=== PATIENT | female | born 1945 | race Caucasian/White ===

== ENCOUNTER 2018-11-07 17:48 | Inpatient (IN) | payer OTHER ==
[~2018-11-07] VITALS: Ht 170.2 cm; Wt 48.5 kg
--- NOTE | ~2018-11-07 | D ---
[facility] [place] [address] DISCHARGE SUMMARY Name: BRANDY HENLEY Room #: 455-P ADM IN M.R.#: [id number] Admission: 11/07/18 Attend Phys: Flavio Lyons MD Discharge: Date of : 41 Report #: [id number] THIS REPORT FOR: //name// CC: Flavio Lyons FINAL DIAGNOSES: 1. Nonhealing wound to the left lower leg. 2. Peripheral artery disease. 3. Diabetes type 2. 4. Tobaccoism. PROCEDURES: 1. Arteriogram and stent placement, left leg. 2. Surgical debridement, wound of the left leg. HOSPITAL COURSE: The patient was admitted for treatment of a nonhealing lower left leg wound that was due to minor trauma that occurred a month or so back. She failed outpatient treatment of oral antibiotics, topical treatment, several office visits and even [facility]. Arteriogram was obtained. A stent was placed in the left arterial system. Please see that specific report. Other medications were continued. She then required surgical debridement of the area to excise eschar type material. Please see that operative note. Ultimately, our medical plan and recommendation was correction for optimal wound care to ensure healing. She has had a complicated course that had failed outpatient treatment. She is also newly diabetic and has had some fluctuating blood sugars. We are also encouraging her to stop smoking. PHYSICAL EXAMINATION: GENERAL: On the day of discharge, she was resting comfortably in bed. VITAL SIGNS: Stable. LUNGS: Clear. HEART: Regular. ABDOMEN: Soft, normoactive bowel sounds. EXTREMITIES: Showed no edema and the left leg wound was dressed. DISPOSITION: She will be transferred to the [facility]. Diabetic diet. Activity as tolerated. Wound care per orders. PT, OT. Should continue Amaryl, metformin and Plavix. Follow up with me in a month and Dr. Suazo in a week. By: [id number] Flavio Lyons MD /nt
--- NOTE | ~2018-11-07 | H ---
[facility] [place] [address] [place] [address] HISTORY AND PHYSICAL Name: BRANDY HENLEY Room #: 354-P ADM IN M.R.#: [id number] Admission: 11/07/18 Attend Phys: Flavio Lyons MD Discharge: Date of : 41 Report #: [id number] THIS REPORT FOR: //name// CC: Flavio Lyons DATE OF SERVICE: 11/07/2018 HISTORY OF PRESENT ILLNESS: A 73-year-old female with nonhealing wound and near gangrene, left leg. HISTORY OF PRESENT ILLNESS: This is a patient couple of months ago injured her left leg with really what appeared to be a minor injury, but this has never healed and so now over 2-3 months out and she comes to the office with almost a gangrenous looking leg. Very suspicious for significant vascular insufficiency. Sonogram was done, which confirmed high-grade stenosis of his distal left superficial femoral artery. There are multiple other issues there as well and in view of the urgency of the situation admission was recommended. MEDICATIONS: She currently takes metformin and glimepiride. She has been on sulfasalazine. ALLERGIES: She has no known drug allergies. FAMILY HISTORY: Noncontributory. SOCIAL HISTORY: She does not drink, but does smoke cigarettes. REVIEW OF SYSTEMS: No specific cardiac, pulmonary, GI or complaints at this time. She is just frustrated with her left leg issues. PHYSICAL EXAMINATION: GENERAL: Shows her to be in no distress. She is awake, alert and oriented. HEENT: Otherwise, negative. NECK: Supple, without thyromegaly or adenopathy. CHEST: Clear. CARDIOVASCULAR: Showed a regular rate and rhythm without murmur. ABDOMEN: Soft and nontender, without hepatosplenomegaly. EXTREMITIES: Showed the left leg, which was cool and there was significant wounds on the anterior hogan, lateral toe and Achilles area. ASSESSMENT: This is a 73-year-old female with a nonhealing left leg wounds with severe peripheral vascular disease and near gangrenous state. PLAN: 1. Aortogram and lower extremity arteriogram with the hopes of angioplasty or stent. [facility] [address] [place] [address] HISTORY AND PHYSICAL Name: BRANDY HENLEY Room #: 354-P ADM IN M.R.#: [id number] Admission: 11/07/18 Attend Phys: Flavio Lyons MD Discharge: Date of : 41 Report #: [id number] 2. Diabetes. 3. Smoking history. By: [id number] Abrahan Faith MD /PMT
[2018-11-07 18:10] VITALS: BP 146/78
[2018-11-07 19:34] VITALS: BP 146/73
[2018-11-07 20:23] LABS: ABSOLUTE NEUTROPHILS 5.8 thou/uL (1.4-8.2); BASOPHILS 0.3 % (0.0-2.0); EOSINOPHILS 1.4 % (0.0-3.0); HEMATOCRIT 38.2 % (37.0-47.0); MCH 28.3 pg (26.0-34.0); MCHC 34.2 g/dL (28.0-37.0); MCV 82.9 fL (80.0-100.0); MONOCYTES 6.9 % (1.0-8.0); PLATELET COUNT 338 thou/uL (150-400); POLYS 69.4 % (36.0-66.0); RDW 13.5 % (10.5-14.5); WBC 8.4 thou/uL (4.0-11.0)
[2018-11-07 20:40] LABS: ALBUMIN 3.3 g/dL (3.4-5.0); CALCIUM 9.3 mg/dL (8.5-10.1); TOTAL BILIRUBIN 0.4 mg/dL (<0.1-1.0); TOTAL PROTEIN 7.6 g/dL (6.4-8.2)
[2018-11-07] MEDS ORDERED: AMARYL4 MG PO (20:40)
[2018-11-07] MEDS ORDERED: METFORMIN HCL500 MG PO (20:40)
[2018-11-07] MEDS ORDERED: SSD CREAM 1% 5050 GM TOP (20:40)
[2018-11-08] VITALS (7 sets, daily range): BP systolic 103–1103; BP diastolic 47–77
[2018-11-08 05:44] LABS: HEMATOCRIT 37.3 % (37.0-47.0); HEMOGLOBIN 12.7 gm/dL (12.0-15.0); MCH 28.2 pg (26.0-34.0); MCHC 34.1 g/dL (28.0-37.0); MCV 82.6 fL (80.0-100.0); RBC 4.51 mil/uL (4.20-5.00); RDW 13.6 % (10.5-14.5); WBC 7.2 thou/uL (4.0-11.0)
[2018-11-08 05:57] LABS: CALCIUM 9.1 mg/dL (8.5-10.1); CREATININE 0.8 mg/dL (0.6-1.0); POTASSIUM 4.3 mmol/L (3.5-5.1); TOTAL BILIRUBIN 0.4 mg/dL (<0.1-1.0); TOTAL PROTEIN 6.9 g/dL (6.4-8.2)
--- NOTE | 2018-11-08 06:01 | NUR ---
PATIENT IS ALERT AND ORIENTED. PATIENT IS UP WITH ONE. PATIENT HAS REDDNESS AND SWELLING TO LLE AND HAS A LIMP UPON AMBULATION. PATIENT IS ROOM AIR. PATIENT IS ACHS ACCUCHECKS. PATIENTS LBM WAS THE 14TH. PATIENT IS RESTING COMFORTABLY IN BED WCM. PATIENT IS PROGRESSING TO GOALS.
--- NOTE | 2018-11-08 10:49 | NUR ---
Assess due to RD consult received for pt with vascular wound, non healing left wound. Hx DM, + tobacco use. Newly admitted and pt was sleeping at time of visit so did not awaken. Low BMI 16.8, no wt loss hx available. Breakfast tray observed and pt ate 100% of large meal. BG slight elevated 150-160. Continue carb control diet, add glucerna shake for extra calories/protein and will follow up again next week to further assess intake trends and wt hx.
--- NOTE | 2018-11-08 11:14 | NUR ---
WOUND CONSULT; LEFT LOWER EXTREMITY ASSESSED. THE LEFT VILLARREAL HAS BRUSING AND ESCHAR-LIKE COVERING, THE WOUND IS STABLE. THE EXTREMITY IS COLD, THERE IS A OLD BLISTER TO THE 5TH TOE. NO PULSES AND NO PULSES ASSESSED WITH A BEDSIDE DOPPLER. THERE IS NO DRAINAGE AND THE EXTREMILY IS TENDER. RECOMMENDATION; (FOR NOW) PAINT THE AREAS WITH BETADINE AND COVER WITH AN OPTIFOAM BOARDERED DRESSING. DISCUSSED WITH BLAS
[2018-11-08 12:04] LABS: PROTIME 10.5 Seconds (9.3-11.4)
--- NOTE | 2018-11-08 15:32 | NUR ---
ASSESSMENT: CM REVIEWED CHART AND MET WITH PATIENT AT THE BEDSIDE. PT WAS ADMITTED WITH PVD/NON-HEALING WOUNDS. PT REPORTS THAT SHE NORMALLY LIVES ALONE BUT STATES SHE CURRENTLY IS STAYING WITH HER SON AND DAUGHTER IN [place] AND PLANS ON STAYING THERE FOR A WHILE. SHE REPORTS THEY LIVE IN A HOUSE. PT REPORTS ABOUT 8 STEPS WITH HANDRAILS TO ENTER AND ABOUT ANOTHER 5-6 WITH HANDRAIL TO THE UPPER FLOOR. PT REPORTS HAVING A WALK IN SHOWER WITH SHOWER CHAIR. PT REPORTS BEING INDEPENDENT WITH ADLS. PT STATES SHE HAS NO HAD HH IN THE PAST OR BEEN TO A SNF. CM DISCUSSED ROLE. PT DOES NOT ANTICIPATE HAVING ANY NEEDS AT DISCHARGE. PT IS TO HAVE AORTIOGRAM WITH LOWER EXTREMITY ANTERIOGRAM TOMORROW. CM WILL CONTINUE TO FOLLOW TO ASSIST NEEDED.
--- NOTE | 2018-11-08 19:56 | NUR ---
PATIENT VERY PLEASANT AND COOPERATIVE. SHE HAS EXPRESSED SOME PAIN IN HER LEG, HOWEVER EXPRESSED SHE DOES NOT NEED PAIN MEDICATION. NEW CREAM WITH MORPHINE APPLIED AFTER IT ARRIVED TO UNIT. HER LEFT LEG WOUND WAS DRESSED AFTER CREAM APPLIED. PATIENT UP WITH ASSISTANCE. PHYSICIANS ROUNDED TODAY AND DISCUSSED HER PLAN OF CARE FOR TOMORROWS PROCEEDURE. REPORT GIVEN TO DIGITAL ACCOUNT EXECUTIVE RN FOR CONTINUATION OF CARE.
[2018-11-09 04:00] VITALS: BP 145/77
[2018-11-09 07:54] VITALS: BP 118/72
--- NOTE | 2018-11-09 13:39 | NUR ---
ON-GOING ASSESSMENT: PT IS TO HAVE ARTERIOGRAM WITH POSSIBLE STENT PLACEMENT. PT REPORTS SHE SHOULD HAVE NO NEEDS AT DISCHARGE ONCE SHE IS MEDICALLY STABLE. CM WILL CONTINUE TO FOLLOW TO ASSIST NEEDED. PT CURRENTLY IS LIVING WITH HER SON.
[2018-11-09 16:02] VITALS: BP 131/75
[2018-11-09 19:58] VITALS: BP 122/64
[2018-11-10 03:26] VITALS: BP 133/59
[2018-11-10 07:36] VITALS: BP 114/63
[2018-11-10 15:45] VITALS: BP 137/75
[2018-11-10 19:05] VITALS: BP 115/72
--- NOTE | 2018-11-11 03:15 | NUR ---
ASSUMED PT CARE AROUND 1900. A&OX4. C/O LLE PAIN. ZIGGY CREAM AND DRESSING CHANGED TO LLE. UP W/ SBA TO BSC. TOLERATED WELL. PT SLEPT MOST OF THE NIGHT. RESP EVEN AND UNLABORED. PROGRESSING TOWARD POC GOALS. WILL CONTINUE TO MONITOR FURTHER.
[2018-11-11 03:40] VITALS: BP 124/75
[2018-11-11 07:20] VITALS: BP 118/71
--- NOTE | 2018-11-11 13:11 | NUR ---
ASSUMED CARE OF PT AT 0700. PT ALERT AND ORIENTED, IN NO ACUTE DISTRESS. DRESSING CHANGED PER ORDER - NEW PICTURE PLACED IN CHART FOR POSSIBLE D/C TODAY OR TOMORROW. PT VOICING NO CONCERNS AT THIS TIME. UP W/ SBA. VITALS STABLE. CONTINUES TO REFUSE INSULIN. WILL CONT TO MONITOR.
[2018-11-11 16:30] VITALS: BP 118/69
--- NOTE | 2018-11-11 19:50 | NUR ---
pt is A&OX3, PT'S vs are stable , pt denies pain and sob , RN has called dr to report pt refused insulin sq. pt has slowly meeting care plan goals.
[2018-11-11 19:56] VITALS: BP 132/65
--- NOTE | 2018-11-12 03:23 | NUR ---
ASSUMED PT CARE AROUND 1900. A&OX4. C/O LLE PAIN. DRESSING CHANGED TO LLE WOUND. MORPHINE/SILVADENE CREAM APPLIED TO LLE WOUND PER DR ORDER. PT SLEPT MOST OF THE NIGHT. RESP EVEN AND UNLABORED. FALL PRECAUTIONS IN PLACE. PROGRESSING TOWARD POC GOALS. WILL CONTINUE TO MONITOR FURTHER.
[2018-11-12 04:33] VITALS: BP 121/58
[2018-11-12 07:53] VITALS: BP 129/76
--- NOTE | 2018-11-12 13:04 | NUR ---
on-going assessment: cm reviewed chart and spoke with attending. pt/ot ordered. physical therapy is recommending POST ACUTE CARE AT DISCHARGE. CM SPOKE WITH PATIENT TO DISCUSS AND SHE IS AGREEABLE FOR POST ACUTE CARE. CM PROVIDED PATIENT WITH A SNF LIST FOR HER TO REVIEW AND SHE PLANS ON NOTIFYING CM TODAY OF A PLACE FOR REFERRAL TO BE SENT. CM WILL CONTINUE TO FOLLOW WE WILL NEED INSURANCE AUTH PRIOR TO DISCHARGE TO SNF.
--- NOTE | 2018-11-12 13:53 | NUR ---
dp sent snf referral to [facility], requesting they please seek authorization. Patient is medically stable to dc once we have auth. DP will call [facility] to verify they received the referral
[2018-11-12 16:04] VITALS: BP 134/76
--- NOTE | 2018-11-12 16:09 | NUR ---
ORDER REC'D FOR OT EVAL AND TREAT. PATIENT INTERVIEWED AND INSTRUCTED IN ROLE OF OCCUPATIONAL THERAPY. 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 SHE DECLINED THE NEED FOR OT AT THIS TIME STATING THAT SHE IS ABLE TO DO HER SELFCARES AND ONLY NEEDS PHYSICAL THERAPY FOR HER WALKING. PATIENT WAS ABLE TO DEMONSTRATE ABILITY TO DO BASIC ADLS. WILL DISCHARGE PATIENT FROM ACUTE OT AFTER THIS SCREENING DUE TO PATIENT'S DENIAL OF NEED FOR OT.
[2018-11-12 19:40] VITALS: BP 147/66
--- NOTE | 2018-11-12 20:01 | NUR ---
Assumed care aprox. 0700 this AM. Patient circulation adequate with 2/2 pulses and pink, warm skin. Patient complained of mild to moderate pain but refused any pain medications for comfort. Dressing change completed by wound care nurse, Rosita and doctor. Patient anxious to be discharged and go home. Patient up with standy assist and walker. Patient reported to be steady on her feet by the nurse aides. Progression made toward plan of care.
[2018-11-13 04:29] VITALS: BP 131/54
--- NOTE | 2018-11-13 06:12 | NUR ---
ASSUMED CARE AT 1900, ASSESSMENT COMPLETED. PT REPORTS MODERATE PAIN IN LEFT LEG, REFUSED ANY PAIN MEDS; STATES IT FEELS LIKE SHARP PRICKLING, INCREASED SINCE HAVING STENT PLACED. DENIED SOB OR NAUSEA. RIGHT GROIN SITE C/D/I NO SIGNS OF HEMATOMA OR BLEEDING. PT HAD A LATE DAY DRESSING CHANGE, REFUSED SECOND CHANGE IN EVENING; DRESSING SITE C/D/I. 1+ PITTING EDEMA IN LEFT FOOT/ANKLE AND A 3+ BOUNDING PEDAL PULSE; LOOSENED ANASTASIA WRAP TO DRESSING TO REDUCE EDEMA. NO OTHER CONCERNS, WILL CONTINUE TO MONITOR.
[2018-11-13 07:37] VITALS: BP 127/74
[2018-11-13] MEDS ORDERED: CLOPIDOGREL75 MG PO (10:08)
--- NOTE | 2018-11-13 12:55 | NUR ---
on-going assessment: CM MET WITH PATIENT AT THE BEDSIDE. PT REPORTS STILL FEELING WEAK AND IF SHE NEEDS SNF AT DISCHARGE. CM DISCUSSED DISCHARGE ORDERS HAVE BEEN WRITTEN FOR SNF AND CM FAXED PT/OT D/C ORDERS TO [facility] AND THEY HAVE SUBMITTED FOR INSURANCE AUTH AND WAITING TO HEAR BACK FROM INSURANCE AT THIS TIME. MINERVA LEFT VM WITH TED AT [facility] THAT WE HAVE DISCHARGE ORDERS AND CM FAXED HER PAPERWORK.
[2018-11-13 19:45] VITALS: BP 139/60
--- NOTE | 2018-11-13 19:47 | NUR ---
Assumed care approx. 0700 this AM. Left extremity dressing changed per orders this afternoon. Patient waiting on insurance auth for discharge to skilled facility; patient anxious to be discharged but remains cooperative. Progression made toward plan of care and discharge.
[2018-11-14 04:26] VITALS: BP 139/91
--- NOTE | 2018-11-14 05:25 | NUR ---
ASSUMED CARE AT 1900, ASSESSMENT COMPLETED. PT REPORTS CHRONIC PAININ LEG, DOES NOT WANT PAIN MEDS. DENIES NAUSEA OR SOB. UP WITH STANDBY ASSIST AND WALKER TO BATHROOM. NPO AT MIDNIGHT FOR DEBRIDEMENT OF LEFT LEG WOUND THIS AM. PER DR. JULIAN, TODAY'S PLAVIX ON HOLD. NO OTHER CONCERNS, WILL CONTINUE TO MONITOR.
[2018-11-14 07:24] VITALS: BP 130/57
--- NOTE | 2018-11-14 10:27 | NUR ---
on-going assessment: PT HAD DEBRIDEMENT THIS AM AND WAS MOVED TO 4W. CM SPOKE WITH DR. HILL WHO STATES PATIENT WILL LIKELY BE STABLE TO DISCHARGE TOMORROW TO SNF. CM LEFT VM WITH TED AT [facility] TO UPDATE HER. WE WILL NEED INSURANCE AUTH PRIOR TO DISCHARGE TO SNF. CM WILL CONTINUE TO FOLLOW TO ASSIST NEEDED.
--- NOTE | 2018-11-14 11:59 | NUR ---
Report given to preop at shift change approx. 0700 this AM. Report called to recieving nurse as patient is med-surg status and transferred to new unit. All belongings sent to patient's new room.
--- NOTE | 2018-11-14 15:00 | NUR ---
PT A&O4, VSS, RATES PAIN AT 4 IN LEFT LEG AND DOESNT WANT PAIN MEDICATION AT THIS TIME. BASELINE SENSATION FELT IN LEFT LEG, PATIENT STATES SHE BEEN HAVING SOME NUMBNESS IN BOTH FEET NOT NEW ONSET. COLOR IN LE APPORPRIATE, SKIN WARM TO TOUCH. DENIES CHEST PAIN, SOA. TOLERATING DIET WELL, WILL CONTINUE TO MONITOR.
[2018-11-14 20:50] VITALS: BP 139/70
--- NOTE | 2018-11-15 05:08 | NUR ---
Pt. rested quietly at intervals during the night when checked on during frequent rounds. Dressing to left lower leg is dry and intact. She c/o moderate pain to the left leg, but did not want anything for pain. Blood sugar elevated last evening, but pt. voice she will not take any insulin. Bed alarm is on.
[2018-11-15 08:34] VITALS: BP 123/55
--- NOTE | 2018-11-15 09:47 | NUR ---
DISCHARGE PLANNING. ANTICIPATED DISCHARGE TODAY TO [facility], PENDING ATTENDING ASSESSMENT. CALL PLACED TO TED, [facility] SMOG TECHNICIAN. VOICE MAIL LEFT FOR TED TO FOLLOW UP ON PATIENT INSURANCE AUTH STATUS. UNIT SW AWARE. FOLLOWING.
--- NOTE | 2018-11-15 15:08 | PATH ---
[facility] [address] [place] [address] PATHOLOGY RPT PROCEDURE Name: BRANDY HENLEY Room #: 455-P ADM IN M.R.#: [id number] Admission: 11/07/18 Date of : 41 Discharge: Report #: [id number] Path Case #: [id number] [facility] Accession Number: [id number] . 01 Material submitted: . leg - LEFT LOWER EXTREMITY WOUND. Modifiers: left, lower . 01 Clinical history: . PVD, nonhealing wound left lower leg . 02 Diagnosis: Skin and subcutaneous tissue, "left lower extremity wound", debridement: - Skin with ulceration and associated necrosis and acute abscess. (ESTEFANIA/db; 11/15/2018) LBQ/11/15/2018 . 02 Electronically signed: . David Tuttle MD, Pathologist NPI- [id number] . 01 Gross description: . The specimen is received in formalin, labeled "Brandy Henley, left lower extremity wound" and consists of a necrotic segment of pink-mcintosh to black-brown tissue measuring 6.8 x 2.8 x 0.3 cm. Insole Rounder sections are submitted in A1. (SDY; 11/14/2018) SYU/SYU . 02 Pathologist provided ICD-10: I96, L97.929, L02.416 . 02 CPT . 621610 Specimen Comment: A courtesy copy of this report has been sent to Specimen Comment: [phone], . Specimen Comment: Report sent to / DR HILL Performed at: [address], [place] [id number] MD Franklin Aleman MD Phone: [phone] Performed at: [address] [id number] MD Christina Oliva MD Phone: [phone]
[2018-11-15 17:00] VITALS: BP 126/59
--- NOTE | 2018-11-15 17:15 | NUR ---
AWAITING INSURANCE FOR PT TO [facility] SKILLED. CM FOLLOWING REGARDING DC PLANNING.
[2018-11-15 19:52] VITALS: BP 139/71
--- NOTE | 2018-11-15 20:25 | NUR ---
PT A&OX4, VSS, CHRONIC PAIN. PATIENT DOESNT WANT MEDICATION AT THIS TIME. DRESSING ON LEFT LEG CHANGED. DRESSING RIGHT GROIN C/D/I. WILL CONTINUE TO MONITOR.
--- NOTE | 2018-11-16 02:18 | NUR ---
ASSUMED CARE FROM DAY SHIFT , DRESSING DRY AND INTACT TO LEG DENIES PAIN AT TIME OF ASSESSMENT, UP TO BATHROOM WITH WALKER, RESTED WELL THROUGHOUT HOURLY ROUNDS WILL CONITNUE WITH CURRENT PLAN OF CARE, WILL REPORT CHANGES OR ABNORMAL FINDINGS
--- NOTE | 2018-11-16 06:36 | O ---
[facility] [address] [place] [address] OPERATIVE REPORT Name: BRANDY HENLEY Room #: 455-P [facility] [place] M.R.#: [id number] Admission: 11/07/18 Attend Phys: Flavio Lyons MD Discharge: Date of : 41 Report #: [id number] THIS REPORT FOR: //name// CC: Flavio Lyons DATE OF SERVICE: 11/14/2018 SURGEON: Oswald Vasquez MD VIOLIN MECHANIC: None. PREOPERATIVE DIAGNOSES: 1. Chronic left lower extremity wound. 2. Peripheral vascular disease. 3. Newly diagnosed diabetes mellitus. POSTOPERATIVE DIAGNOSES: 1. Chronic left lower extremity wound (stage 3). 2. Peripheral vascular disease. 3. Newly diagnosed diabetes mellitus. PROCEDURE: Excisional and ultrasonic debridement of stage 3 left lower extremity wound including skin, subcutaneous tissue, and fascia (32 cm2). ANESTHESIA: General laryngeal mask anesthesia and local anesthetic. ESTIMATED BLOOD LOSS: 5 mL. SPECIMEN: Left lower extremity wound including skin, subcutaneous tissue, and fascia. COMPLICATIONS: None appreciated. INDICATIONS FOR PROCEDURE: This is a 73-year-old female patient that was admitted for a left lower extremity wound. The wound initially started off after she had "bumped" her hogan in late 07/2018. She tried treating the wound locally and went through a couple different rounds of antibiotics before she ultimately underwent lower extremity stent placement for peripheral vascular disease. She has also been recently diagnosed with diabetes mellitus. As her wound has not improved with local wound care, she presents now for excisional and ultrasonic debridement of her wound. OPERATIVE FINDINGS: The wound measured 8 x 4 cm. Fibrinous exudate and eschar were present throughout most of the wound. Debridement was carried down to healthy, bleeding tissue. This required removal of the fascia that appeared to be poorly vascularized. The underlying muscle was viable. There were no [facility] [address] [place] [address] OPERATIVE REPORT Name: BRANDY HENLEY Room #: 455-P [facility] [place] ..#: [id number] Admission: 11/07/18 Attend Phys: Flavio Lyons MD Discharge: Date of : 41 Report #: [id number] malignant features associated with the wound. DESCRIPTION OF PROCEDURE IN DETAIL: After the risks, benefits, and expectations of the operation were discussed in detail with the patient, informed consent was obtained. The patient was identified in the preoperative holding area. She was given IV antibiotics as documented in the chart in line with SCIP metrics. The patient was then taken to the operating room and she was placed in the supine position. An SCD was placed on the patient's right lower extremity. Pneumatic compression was initiated. The patient was then given IV sedation and a laryngeal mask was placed without difficulty. The patient's left lower extremity was prepped and draped in the standard sterile fashion. A time-out was performed to identify the correct patient and procedure. Local anesthetic was infiltrated into the skin and subcutaneous tissue in the area of the planned excision. A sharp #10 blade scalpel was used to excise the necrotic tissue overlying the wound. This did not require removal of the wound edges, but rather increased the depths of the wound, which also included the fascia to reveal the underlying muscle. Cultures were then taken to be sent for aerobes, anaerobes and fungus. Bleeding points were made hemostatic with electrocautery after injecting more local anesthetic into the wound base. The FatSkunk ultrasonic debridement device was then used to mechanically debride the entire surface area of the wound with development of a gentle ooze of blood from the tissue and good cavitation, indicative of bacterial clearance and clearance of necrotic cells. The wound was then irrigated and reinjected with local anesthetic. After ensuring final hemostasis, the wound was dressed with tea-colored Betadine:normal saline solution on gauze, then wrapped with Kerlix. The patient tolerated the procedure well. She was awakened, the laryngeal mask was removed without difficulty, and the patient was taken to the recovery room in stable condition with no apparent intraoperative complications. <ELECTRONICALLY SIGNED> By: Oswald Vasquez MD, FACS 11/16/18 [id number] Oswald Vasquez MD, FACS /nt
[2018-11-16 07:14] VITALS: BP 148/64
--- NOTE | 2018-11-16 11:54 | NUR ---
Received awake on bed. Due medications given as prescribed, able to swallow tablets w/o difficulty. A+Ox4. On room air. On blood sugar monitoring- taken and recorded accordingly. With SL at R Hand- intact and flushing well. Pt mobilizing using walker, gait belt and stand by assist. With dressing in place at L leg, C/D/I, no signs of infection noted. Pt seen by PT/OT, tolerated session well. Vital signs stable.
== END 2018-11-16 16:45 | DRG 253 ==
LOC: 3W 17:48 → 4W 11-14 10:20
PROVIDERS: Internal Medicine; Radiology Diagnostic Radiology; ADMIT Internal Medicine Geriatric Medicine
PROC: B41D1ZZ Fluoroscopy of Aorta and Bilateral Lower Extremity Arteries using Low Osmolar Contrast (ICD-10-PCS; principal; 2018-11-09)
PROC: 047L3DZ Dilation of Left Femoral Artery with Intraluminal Device, Percutaneous Approach (ICD-10-PCS; principal; 2018-11-09)
PROC: 0JBP0ZZ Excision of Left Lower Leg Subcutaneous Tissue and Fascia, Open Approach (ICD-10-PCS; 2018-11-14)
DX: E11.51 Type 2 diabetes mellitus with diabetic peripheral angiopathy without gangrene (principal); E44.0 Moderate protein-calorie malnutrition; L97.829 Non-pressure chronic ulcer of other part of left lower leg with unspecified severity; Z68.1 Body mass index [BMI] 19.9 or less, adult; I70.202 Unspecified atherosclerosis of native arteries of extremities, left leg; Z95.820 Peripheral vascular angioplasty status with implants and grafts; Z79.899 Other long term (current) drug therapy
CPT/HCPCS: 10047; 10779; 50010; 50101; 50386; 57091; 57119; 57120; 62110; 62900; 70005

== ENCOUNTER → 2018-11-20 | Outpatient (CLI) | payer OTHER ==
[~2018-11-20] MED LIST: AMARYL4 MG PO; CLOPIDOGREL75 MG PO; METFORMIN HCL500 MG PO; SSD CREAM 1% 5050 GM TOP
== END ==
LOC: HYPER
DX: E11.622 Type 2 diabetes mellitus with other skin ulcer (principal); L97.822 Non-pressure chronic ulcer of other part of left lower leg with fat layer exposed; E11.51 Type 2 diabetes mellitus with diabetic peripheral angiopathy without gangrene; I77.1 Stricture of artery; F17.200 Nicotine dependence, unspecified, uncomplicated; Z79.84 Long term (current) use of oral hypoglycemic drugs; Z79.01 Long term (current) use of anticoagulants

== ENCOUNTER → 2018-12-04 | Outpatient (CLI) | payer OTHER | LOC: HYPER 06:49 | DX: E11.622 Type 2 diabetes mellitus with other skin ulcer (principal); L97.822 Non-pressure chronic ulcer of other part of left lower leg with fat layer exposed; E11.51 Type 2 diabetes mellitus with diabetic peripheral angiopathy without gangrene; F17.200 Nicotine dependence, unspecified, uncomplicated; Z79.84 Long term (current) use of oral hypoglycemic drugs; Z79.01 Long term (current) use of anticoagulants ==

== ENCOUNTER → 2018-12-19 | Outpatient (CLI) | payer OTHER | LOC: HYPER 07:01 | DX: E11.622 Type 2 diabetes mellitus with other skin ulcer (principal); L97.822 Non-pressure chronic ulcer of other part of left lower leg with fat layer exposed; E11.52 Type 2 diabetes mellitus with diabetic peripheral angiopathy with gangrene; I96 Gangrene, not elsewhere classified; I87.2 Venous insufficiency (chronic) (peripheral); F17.290 Nicotine dependence, other tobacco product, uncomplicated; Z79.01 Long term (current) use of anticoagulants; Z79.84 Long term (current) use of oral hypoglycemic drugs ==

== ENCOUNTER → 2019-01-10 | Outpatient (CLI) | payer OTHER | LOC: HYPER 10:30 | DX: E11.622 Type 2 diabetes mellitus with other skin ulcer (principal); L97.822 Non-pressure chronic ulcer of other part of left lower leg with fat layer exposed; E11.51 Type 2 diabetes mellitus with diabetic peripheral angiopathy without gangrene; F17.200 Nicotine dependence, unspecified, uncomplicated; Z79.84 Long term (current) use of oral hypoglycemic drugs; Z79.01 Long term (current) use of anticoagulants ==

== ENCOUNTER → 2019-01-29 | Outpatient (CLI) | payer OTHER | LOC: HYPER 07:28 | DX: E11.622 Type 2 diabetes mellitus with other skin ulcer (principal); L97.822 Non-pressure chronic ulcer of other part of left lower leg with fat layer exposed; E11.51 Type 2 diabetes mellitus with diabetic peripheral angiopathy without gangrene; F17.200 Nicotine dependence, unspecified, uncomplicated; Z79.84 Long term (current) use of oral hypoglycemic drugs; Z79.01 Long term (current) use of anticoagulants ==

== ENCOUNTER → 2019-03-12 | Outpatient (CLI) | payer OTHER | LOC: HYPER 11:02 | DX: E11.622 Type 2 diabetes mellitus with other skin ulcer (principal); L97.822 Non-pressure chronic ulcer of other part of left lower leg with fat layer exposed; I70.248 Atherosclerosis of native arteries of left leg with ulceration of other part of lower leg; S81.001A Unspecified open wound, right knee, initial encounter; E11.51 Type 2 diabetes mellitus with diabetic peripheral angiopathy without gangrene; F17.200 Nicotine dependence, unspecified, uncomplicated; Z79.84 Long term (current) use of oral hypoglycemic drugs; Z79.01 Long term (current) use of anticoagulants; X58.XXXA Exposure to other specified factors, initial encounter; Y93.89 Activity, other specified; Y92.89 Other specified places as the place of occurrence of the external cause; Y99.8 Other external cause status ==

== ENCOUNTER → 2019-04-02 | Outpatient (CLI) | payer OTHER | LOC: HYPER 11:03 | DX: E11.622 Type 2 diabetes mellitus with other skin ulcer (principal); I70.248 Atherosclerosis of native arteries of left leg with ulceration of other part of lower leg; L97.822 Non-pressure chronic ulcer of other part of left lower leg with fat layer exposed; S81.801D Unspecified open wound, right lower leg, subsequent encounter; E11.51 Type 2 diabetes mellitus with diabetic peripheral angiopathy without gangrene; L84 Corns and callosities; F17.290 Nicotine dependence, other tobacco product, uncomplicated; Z79.84 Long term (current) use of oral hypoglycemic drugs; Z79.01 Long term (current) use of anticoagulants; X58.XXXD Exposure to other specified factors, subsequent encounter ==

== ENCOUNTER → 2019-04-16 | Outpatient (CLI) | payer OTHER | LOC: HYPER 09:42 | DX: I70.232 Atherosclerosis of native arteries of right leg with ulceration of calf (principal); E11.622 Type 2 diabetes mellitus with other skin ulcer; L97.212 Non-pressure chronic ulcer of right calf with fat layer exposed; L97.222 Non-pressure chronic ulcer of left calf with fat layer exposed; E11.51 Type 2 diabetes mellitus with diabetic peripheral angiopathy without gangrene; L84 Corns and callosities; F17.290 Nicotine dependence, other tobacco product, uncomplicated; Z79.84 Long term (current) use of oral hypoglycemic drugs ==

== ENCOUNTER → 2019-05-07 | Outpatient (CLI) | payer OTHER | LOC: HYPER 10:33 | DX: I70.248 Atherosclerosis of native arteries of left leg with ulceration of other part of lower leg (principal); E11.622 Type 2 diabetes mellitus with other skin ulcer; L97.822 Non-pressure chronic ulcer of other part of left lower leg with fat layer exposed; L97.812 Non-pressure chronic ulcer of other part of right lower leg with fat layer exposed; S81.801D Unspecified open wound, right lower leg, subsequent encounter; E11.51 Type 2 diabetes mellitus with diabetic peripheral angiopathy without gangrene; L84 Corns and callosities; F17.290 Nicotine dependence, other tobacco product, uncomplicated; Z79.84 Long term (current) use of oral hypoglycemic drugs; Z79.01 Long term (current) use of anticoagulants; X58.XXXD Exposure to other specified factors, subsequent encounter ==

== ENCOUNTER → 2019-11-04 | Outpatient (CLI) | payer OTHER | LOC: RAD 14:20 | PROVIDERS: ATTEND Internal Medicine | DX: R07.82 Intercostal pain (principal) ==

== ENCOUNTER 2021-01-29 19:35 | Inpatient (IN) | payer OTHER ==
[~2021-01-29] VITALS: Ht 172.7 cm; Wt 53.1 kg
--- NOTE | ~2021-01-29 | EMS ---
[facility] [address] [place] [place] [address] EMS Patient Care Report Name: BRANDY HENLEY Room #: 352-P ADM IN M.R.#: [id number] Admission: 01/29/21 Attend Phys: Taj Rodriguez MD Discharge: Date of : 41 Report #: [id number] THIS REPORT FOR: //name// Report Transmitted: 01/30/2021 06:39 EMS Care Summary [facility] MED-ACT Incident [id number] @ 01/29/2021 18:34 Incident Location [address] [place] [address] [place] [address] Patient BRANDY HENLEY Female, 75 Years 1945 Patient Address [address] [place] [address] Patient History Diabetes, Patient Allergies No known allergies, Patient Medications Metformin, Glimepiride, ASA, Chief Complaint she's having trouble walking/slurring her speech Disposition Transported No Lights/[place] Dispatch Reason Sick Person Transported To [facility] Narrative dispatch: medic 1134 dispatched to a private residence for a report of an intoxicated democrat. medic 1134 immediately responded to the scene without delay. chief complaint: upon arrival to the scene ems enters the residence to find a [facility] [address] [place] [place] [address] EMS Patient Care Report Name: BRANDY HENLEY Room #: 352-P ADM IN MCarla#: [id number] Admission: 01/29/21 Attend Phys: Taj Rodriguez MD Discharge: Date of : 41 Report #: [id number] 75 y/o female pt seated upright in a chair at the kitchen table. pt alert, slow to respond to questions. pt states no complaints. 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 resident's son has multiple camera's through out the home and an out of town family member noticed pt appeared to be unsteady ambulating and fatigued. family then summoned neighbors to assess pt in person. neighbors report slurred speech, unsteady gait, and confusion causing them to believe she was intoxicated though they saw no evidence of alcohol inside the home. neighbors summoned ems. pt alert, oriented for ems. extended scene time by ems caused by pt's reluctance to agree to transport. pt stated she was afraid evaluation at a local er would take too long. she reports a recent uti, though completed the antibiotic course for that over 1 week prior. assessment: als assessment performed, findings noted within report. pertinent findings include hypertension, unsteady gait, and fatigue. [facility] negative for arm drift, facial droop, and slurred speech. rendered treatment: assessment, vital signs, ekg, 12 lead ekg, blood glucose, transport. transport: pt agrees to transport to [facility]. pt stood with assistance and sat on stretcher. pt continuously monitored through out transport for changes through out transport. upon arrival to the receiving facility pt transferred to CT via stretcher. verbal report given to attending staff and transfer of care complete. Initial Vitals @19:30P: 198,SpO2: 96, @19:17P: 114,SpO2: 98, @19:28P: 114,SpO2: 97, @19:20P: 174,SpO2: 85, @19:19P: 113,SpO2: 82,GA Suspected: false @19:22P: 115,R: 16,BP: 164/104,GCS: 15,SpO2: 99,Revised Trauma: 12,GA Suspected: false @19:30P: 115,R: 16,BP: 160/84,GCS: 15,Revised Trauma: 12,GA Suspected: false @19:14P: 115,R: 16,BP: 207/98,GCS: 15,SpO2: 98,Revised Trauma: 12, @18:45P: 96,R: 16,BP: 185/96,GCS: 15,SpO2: 99,Revised Trauma: 12, @18:42P: 99,R: 16,BP: 188/107,Pain: 0/10,GCS: 15,Temp: 97.2F,Glucose: 92,SpO2: 98,Revised Trauma: 12, Impression Hypertension Procedures [facility] [address] [place] [address] EMS Patient Care Report Name: BRANDY HENLEY Room #: 352-P ADM IN M.R.#: [id number] Admission: 01/29/21 Attend Phys: Taj Rodriguez MD Discharge: Date of : 41 Report #: [id number] @18:41 ALS Assessment Response: UnchangedSucceeded @18:50 Surgical Mask on Patient Response: Unchanged @19:17 IV Therapy - Normal Saline (.9% NaCl) 0cc (20 ga) Site: Antecubital-Left Response: UnchangedFailed @19:19 12-Lead ECG Response: UnchangedSucceeded Timeline 18:32,Call Received 18:32,Psap Call 18:34,Dispatched 18:34,En Route 18:39,On Scene 18:41,At Patient 18:41,ALS Assessment,Response: UnchangedSucceeded, 18:42,BP: 188/107 M,PULSE: 99,RR: 16 R,SPO2: 98 Ox,ETCO2: ,B,PAIN: 0,GCS: 15, 18:45,BP: 185/96 M,PULSE: 96,RR: 16 R,SPO2: 99 Ox,ETCO2: ,BG: ,PAIN: ,GCS: 15, 18:50,Surgical Mask on Patient,Response: Unchanged 19:14,BP: 207/98 M,PULSE: 115,RR: 16 R,SPO2: 98 Ox,ETCO2: ,BG: ,PAIN: ,GCS: 15, 19:17,IV Therapy - Normal Saline (.9% NaCl) 0cc 20 ga Site: Antecubital-Left,Response: UnchangedFailed, 19:17,BP: / M,PULSE: 114,RR: R,SPO2: 98 Ox,ETCO2: ,BG: ,PAIN: ,GCS: , 19:19,Depart Scene 19:19,12-Lead ECG,Response: UnchangedSucceeded, 19:19,BP: / M,PULSE: 113,RR: R,SPO2: 82 Ox,ETCO2: ,BG: ,PAIN: ,GCS: , 19:20,BP: / M,PULSE: 174,RR: R,SPO2: 85 Ox,ETCO2: ,BG: ,PAIN: ,GCS: , 19:22,BP: 164/104 M,PULSE: 115,RR: 16 R,SPO2: 99 Ox,ETCO2: ,BG: ,PAIN: ,GCS: 15, 19:28,BP: / M,PULSE: 114,RR: R,SPO2: 97 Ox,ETCO2: ,BG: ,PAIN: ,GCS: , 19:30,BP: / M,PULSE: 198,RR: R,SPO2: 96 Ox,ETCO2: ,BG: ,PAIN: ,GCS: , 19:30,BP: 160/84 M,PULSE: 115,RR: 16 R,SPO2: Ox,ETCO2: ,BG: ,PAIN: ,GCS: 15, 19:31,At Destination 19:53,Call Closed Disclaimer v1.1 Copyright 2020 [employer] This EMS Care Summary contains data elements from the applicable legal record (which may be displayed differently). It is designed to provide pertinent information for the following purposes: continuity of care, clinical quality, and state data reporting. The complete legal record is available to ED staff and administrators of the receiving hospital in [employer]'s Patient Tracker. All data is provided "as is."
[2021-01-29 19:41] VITALS: BP 166/91
[2021-01-29 20:19] LABS: ABSOLUTE NEUTROPHILS 4.2 thou/uL (1.4-8.2); BASOPHILS 0.5 % (0.0-2.0); EOSINOPHILS 2.8 % (0.0-3.0); HEMOGLOBIN 12.7 gm/dL (12.0-15.0); LYMPHOCYTES 11.8 % (24.0-44.0); MCH 26.8 pg (26.0-34.0); MCHC 32.6 g/dL (28.0-37.0); MCV 82.2 fL (80.0-100.0); MONOCYTES 10.6 % (1.0-8.0); PLATELET COUNT 304 thou/uL (150-400); POLYS 74.3 % (36.0-66.0); RBC 4.74 mil/uL (4.20-5.00); RDW 13.3 % (10.5-14.5); WBC 5.7 thou/uL (4.0-11.0)
[2021-01-29 20:28] LABS: CALCIUM 9.2 mg/dL (8.5-10.1); CREATININE 0.9 mg/dL (0.6-1.0); POTASSIUM 4.3 mmol/L (3.5-5.1)
[2021-01-29 20:34] LABS: APTT 30.5 Seconds (24.5-32.8); INR 0.97; PROTIME 10.6 Seconds (10.5-12.1)
[2021-01-29 20:38] LABS: ALBUMIN 3.4 g/dL (3.4-5.0); TOTAL BILIRUBIN 0.3 mg/dL (0.2-1.0); TOTAL PROTEIN 7.9 g/dL (6.4-8.2)
[2021-01-29 21:17] LABS: URINE BILIRUBIN NEGATIVE (Negative); URINE BLOOD TRACE (Negative); URINE CLARITY CLEAR; URINE COLOR YELLOW; URINE GLUCOSE-RANDOM* NEGATIVE (Negative); URINE KETONES NEGATIVE (Negative); URINE PROTEIN (DIPSTICK) 1+ (Negative); URINE UROBILINOGEN 0.2 E.U./dl (0.2-1.0)
[2021-01-29 21:24] LABS: URINE LEUKOCYTES-REFLEX 2+ (Negative); URINE NITRITE-REFLEX POSITIVE (Negative)
[2021-01-29 21:42] LABS: CASTS None Seen /LPF (None Seen); SQUAMOUS 0-3 Few /LPF (0-3)
[2021-01-29 21:43] LABS: BACTERIA-REFLEX >30 Many /HPF (None Seen); CRYSTALS None Seen /LPF (None Seen); URINE RBC 1-2 Rare /HPF (NONE SEEN)
[2021-01-29 22:17] VITALS: BP 166/91
[2021-01-29 23:04] VITALS: BP 184/87
[2021-01-30] MEDS ORDERED: ASPIRIN EC325 M1 PO
[2021-01-30] MEDS ORDERED: PRAVACHOL 20 MG20 M1 PO (00:04)
[2021-01-30 00:10] VITALS: BP 151/71
[2021-01-30 04:09] VITALS: BP 178/95
--- NOTE | 2021-01-30 05:22 | NUR ---
Admission history and assessments completed. Careplan initiated. IVfluids and antibiotics started.
[2021-01-30 06:15] LABS: HEMATOCRIT 34.6 % (37.0-47.0); HEMOGLOBIN 11.1 gm/dL (12.0-15.0); MCH 26.8 pg (26.0-34.0); MCV 83.8 fL (80.0-100.0); RBC 4.13 mil/uL (4.20-5.00); RDW 13.4 % (10.5-14.5); WBC 3.8 thou/uL (4.0-11.0)
[2021-01-30 06:52] LABS: CALCIUM 8.3 mg/dL (8.5-10.1); CREATININE 0.7 mg/dL (0.6-1.0); POTASSIUM 4.4 mmol/L (3.5-5.1)
[2021-01-30 07:51] LABS: CHOLESTEROL 92 mg/dL (<200); HDL CHOLESTEROL 48 mg/dL (>40); LDL CHOLESTEROL 37 mg/dL (<100); TC:HDL 1.9 Ratio (Not establshd); TRIGLYCERIDE 37 mg/dL (<150); VLDL 7 mg/dL (<40)
[2021-01-30 07:59] VITALS: BP 154/82
[2021-01-30 09:02] LABS: URINE CREATININE-RANDOM* <13 mg/dL; URINE SODIUM-RANDOM* 65 mmol/L
[2021-01-30 09:33] LABS: BE(vivo) -2.3 mmol/L (-2 to +3); HCO3 20.9 mmol/L (22.0-26.0); PCO2 31.1 mmHg (35.0-45.0); PO2 71.7 mmHg (80.0-100.0); pH 7.445 (7.360-7.450); sO2 95.2 % (92.0-98.0)
--- NOTE | 2021-01-30 11:30 | EKG ---
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 01/30/21 1129 40 40 Slade Swan MD, FAC /EPI
[2021-01-30 12:06] VITALS: BP 151/74
--- NOTE | 2021-01-30 17:44 | NUR ---
ASSUMED PATIENT CARE AT 0700. A/0 X4. TOLERATED ON RA. VSS. WILL KEEP MONITOR.
[2021-01-30 20:55] VITALS: BP 153/82
[2021-01-31 03:15] VITALS: BP 152/88
--- NOTE | 2021-01-31 06:08 | NUR ---
Pt. slept fair during the night. Tolerating room air well. Cont. on enhanced precaution,afebrile. Up with SBA to commode. No confusion and has been appropriate with periods of being anxious. Making progress towards care plan goals.
[2021-01-31 07:08] LABS: GLYCOHEMOGLOBIN (HGB A1C) 8.9 % (4.8-5.6)
[2021-01-31 08:20] VITALS: BP 159/92
--- NOTE | 2021-01-31 09:33 | HC ---
[facility] [place] [address] CONSULTATION Name: BRANDY HENLEY Room #: 352-P ADM IN ..#: [id number] Admission: 01/29/21 Attend Phys: Taj Rodriguez MD Discharge: Date of : 41 Report #: [id number] THIS REPORT FOR: cc: Abrahan Faith MD, Christopher B. MD [place], Roxane S. DO ~ NEUROLOGY CONSULT HISTORY OF PRESENT ILLNESS: The consult was requested for altered mental status and ataxia. Review of the physician documentation states that the patient came to the Emergency Room complaining of altered mental status. The ambulance service was dispatched by the patient's neighbors who noted the patient ambulating unsteadily and slurring her words. This occurred 2 hours prior to arrival. 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 Apparently, she was found in an altered state when EMS did a wellness check on the man she cares for. EMS also reported the patient's systolic blood pressure to be 190. The patient told me that today she feels perfectly fine. She just finished an antibiotic for urinary tract infection. Apparently, the patient was in contact with a neighbor 1 week ago, who had cold-like symptoms. The patient developed a cough approximately 1 week ago. The symptoms were intermittent and resolved prior to her coming to the Emergency Department. 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 The patient tells me that she has no difficulty with her memory. She occasionally feels she has trouble with her balance, but thinks that is from not getting enough exercise. She does have a history of diabetes and has numbness and tingling in her feet, which she attributes to not walking enough. PAST MEDICAL HISTORY: Diabetes, tobacco abuse, peripheral vascular disease, COVID-19, hypertension, urinary tract infection. PAST SURGICAL HISTORY: Negative. CURRENT MEDICATIONS: Vitamin C 500 mg daily, aspirin 325 mg daily, atorvastatin 10 mg at bedtime, Zithromax 500 mg daily, ceftriaxone 1 gram daily, vitamin D 1000 units daily, dexamethasone 6 mg daily, enoxaparin 40 mg at bedtime, glimepiride 4 mg in the morning, sliding scale insulin, zinc 220 mg daily. ALLERGIES: None. VITAL SIGNS: Temperature 36.6, pulse rate 64, respiratory rate 20, blood pressure 151/74, bedside pulse oximetry 95%. [facility] [address] [place] [address] CONSULTATION Name: BRANDY HENLEY Room #: 352-P [facility].#: [id number] Admission: 01/29/21 Attend Phys: Taj Rodriguez MD Discharge: Date of : 41 Report #: [id number] LABORATORY DATA: Hematology: White blood cell count 3.8, hemoglobin 11.1, hematocrit 34.6, MCV 83.8, platelet count 253,000, INR 0.97. Urinalysis: 1+ protein, trace blood, nitrite positive, 2+ leukocyte esterase, moderate wbc's, many bacteria. Blood gas: pH 7.445, pCO2 31.1, pO2 71.7, oxygen saturation 93.9. Chemistry: Sodium 130, potassium 4.4, chloride 97, carbon dioxide 22, BUN 14, creatinine 0.7, GFR 81, glucose 142, calcium 8.3, total bilirubin 0.3, AST 42, ALT 31, alkaline phosphatase 102. Troponin 5, total protein 7.9, albumin 3.4, triglycerides 37, cholesterol 92, LDL cholesterol 37, HDL cholesterol 48. Procalcitonin less than 0.05. Toxicology: Serum alcohol less than 10. Serology: COVID positive. IMAGING: CT scan of the head demonstrates no acute intracranial hemorrhage or large vascular territory, white, barron loss. CT angiography reveals only mild carotid plaquing and narrowing in the 10-20% region. Both vertebral artery origins are widely patent. CTA, [place] region reveals only normal variation, nothing for significant stenosis or aneurysm is seen. The patient has advanced chronic lung disease. This examination only includes the lung apices. There are no obvious findings for malignancy in the visualized lung. NEUROLOGICAL EXAMINATION: The patient was alert and oriented to place and time. Cranial nerves 2-12 were grossly intact. No facial asymmetry was noted. Motor exam demonstrated the patient able to lift her arms above her left head. She was able to lift each leg separately off the bed. Fine finger movements were symmetrical bilaterally. Reflexes were absent. Plantar responses were flexor bilaterally. Sensory exam demonstrated diminished proprioception at the great toes bilaterally. IMPRESSION: The patient appears to have returned to her baseline. There may have been a component of hypertensive urgency, hypoxia, and urinary tract infection affecting her mental status. She has returned to her baseline. So, at this point I suspect she will continue to do well unless there is deterioration in her respiratory status secondary to COVID. I will check a B12 and TSH to be thorough. With regard to her gait, it may have been altered for the same reasons that she may have had difficulty with her memory. However, I also suspect she has a component of diabetic peripheral neuropathy as she has markedly diminished proprioception at the toes. At this point, I would recommend an outpatient EMG to evaluate the degree of neuropathy. [address] [address] CONSULTATION Name: BRANDY HENLEY Room #: 352-P ADM IN M.R.#: [id number] Admission: 01/29/21 Attend Phys: Taj Rodriguez MD Discharge: Date of : 41 Report #: [id number] I have no further suggestions and will sign off. However, if there is a change in the patient's neurological status, please call the neurology service. <ELECTRONICALLY SIGNED> By: Chanel Mitchell DO 01/31/21 0933 [id number] Chanel Mitchell DO /nt
[2021-01-31 11:34] VITALS: BP 177/88
[2021-01-31 16:45] VITALS: BP 206/103
--- NOTE | 2021-01-31 17:41 | NUR ---
PATIENT IS ALERT AND ORIENTED X4. HER RESPIRATIONS APPEAR TO BE EVEN AND UNLABORED. TAISHA DOES NOT REPORT SHORTNESS OF BREATH WHEN TRANSFERRING OR WHEN SHE IS AT REST. PATIENT CONTINUES TO BE ON ROOM AIR. PATIENT THIS SHIFT HAS BEEN VERY FOCUSED ON HOW HER SCD'S ARE ON. THIS RN HAS READJUSTED THEM ON HER CALVES MULTIPLE TIMES. PATIENT GETS UP TO USE THE COMMODE AND SOMETIMES IS UNSTEADY ON HER FEET. PATIENT LEFT AC IV WAS DISCONTINUED THIS SHIFT. PATIENT NOW HAS AN IV IN HER LEFT FOREARM. IV IS SALINE LOCKED. PATIENT HAS NO MEDICAL CONCERNS OR COMPLAINTS AT THIS TIME. PATIENT WILL CONTINUE TO BE MONITORED.
[2021-01-31 19:07] VITALS: BP 170/84
[2021-02-01 04:00] VITALS: BP 156/69
--- NOTE | 2021-02-01 05:46 | NUR ---
Slept fair during the night. Tolerating room air well. Cont. on enhanced precaution , afebrile. Up with SBA to commode to void. Making progress towards care plan goals.
[2021-02-01 07:53] VITALS: BP 175/85
--- NOTE | 2021-02-01 11:04 | NUR ---
PT A&OX4 THIS MORNING, STATES THAT SHE IS READY "NOT TO BE BOTHERED FOR AWHILE" DENIES PAIN. LUNGS DIMINISHED, GOOD COUGHING EFFORT WITH MINIMAL SPUTUM. DIET SWITCHED PT WAS RECEIVING ONLY HEART HEALTHY TRAY, NEEDS AN ADA WELL. PT WAS CONCERNED WHY SHE WAS BEING BROUGHT "SO MUCH FOOD WITH SUGAR" DURING MEALS. NO OTHER QUESTIONS OR CONCERNS AT THIS TIME.
[2021-02-01 11:20] VITALS: BP 165/88
--- NOTE | 2021-02-01 12:15 | NUR ---
Nutrition: pt screen for BMI of 15.3. Pt reported her UBW recently has been around 126 lb and does not feel wt of 100 lb is correct. BMI using est BW is 19.16. Pt reported normal appetite/intake. Will defer further assessement.
[2021-02-01] MEDS ORDERED: ACEROLA C500 MG PO (13:29)
[2021-02-01] MEDS ORDERED: CEFUROXIME500 MG PO (13:29)
[2021-02-01] MEDS ORDERED: ZITHROMAX500 MG PO (13:29)
[2021-02-01] MEDS ORDERED: ACETAMINOPHEN325 M1 PO (13:29)
[2021-02-01] MEDS ORDERED: VITAMIN D325 MC2 PO (13:29)
[2021-02-01] MEDS ORDERED: ZINC SULFATE50 MG PO (13:29)
[2021-02-01] MEDS ORDERED: PREDNISONE 20 M20 M1 PO (13:29)
[2021-02-01] MEDS ORDERED: LISINOPRIL10 MG PO (13:34)
--- NOTE | 2021-02-01 15:21 | NUR ---
INITIAL ASSESSMENT/DISCHARGE NOTE: Received consult. NICOLAS reviewed chart and spoke with nursing and attending physician. Pt was admitted from home due to AMS. Neuro consulted for possible TIA/CVA. Pt with hx HTN and DM. Pt had positive COVID test in the ER and was placed in Enhanced Isolation. Pt has not received a COVID vaccination. Pt is asymptomatic and is medically stable for discharge home today. Pt's PCP is Dr. Graham Faith. No discharge needs identified at this time. Pt will have transportation home. SW is available to assist should needs arise.
[2021-02-01 15:41] VITALS: BP 161/82
--- NOTE | 2021-02-01 17:48 | NUR ---
PT REFUSES TO DISCHARGE DUE TO SOCIAL ISSUES. SW CONTACTED AND PHYSICIAN UPDATED.
[2021-02-01 20:08] VITALS: BP 188/98
[2021-02-02 04:39] VITALS: BP 165/87
--- NOTE | 2021-02-02 06:03 | NUR ---
Pt. stated she had a good night sleep. Denies being in pain. Tolerating room air well. Cont. on enhanced precaution , afebrile. Voiding per commode and had bm this am. Making progress towards care plan goals.
[2021-02-02 08:00] VITALS: BP 162/89
[2021-02-02 11:36] VITALS: BP 162/89
[2021-02-02 11:43] VITALS: BP 118/97
--- NOTE | 2021-02-02 12:29 | NUR ---
PATIENT IS ALERT AND ORIENTED X4. SHE APPEARS TO HAVE EVEN UNLABORED RESPIRATIONS. PATIENT REPORTS NO SHORTNESS OF BREATH WITH EXERTION OR AT REST. PATIENT IS OF APPROPRIATE COLOR FOR HER ETNICITY. PATIENT HAS NO SKIN ISSUES TO REPORT AND NO SKIN ISSUES ARE FOUND BY THIS RN. PATIENT HAS AN EVEN AND STEADY SPEECH PATTERN AND GAIT. PATIENT HAS NO MEDICAL CONCERNS AT THIS TIME. PATIENT WILL CONTINUE TO BE MONITORED.
--- NOTE | 2021-02-02 13:29 | NUR ---
PATIENT WAS DISCHARGED FROM THE FACILITY AT 1315. THIS RN WENT OVER DISCHARGE INSTRUCTIONS AND NEW MEDICATIONS WITH PATIENT. IV AND TELE WERE BOTH DISCONTINUED. PATIENTS BELONGINGS ARE WITH PATIENT. PATIENT TAKEN DOWN IN WHEEL CHAIR.
[2021-02-02 13:46] VITALS: BP 162/89
--- NOTE | 2021-02-02 14:37 | NUR ---
DISCHARGE NOTE: NICOLAS reviewed chart and spoke with nursing and attending physician. Pt remains medically stable for discharge. Cab voucher # [id number] provided if pt needs transportation home. Pt was discharge home earlier today. SW was not notified that attending physician ordered HH services. NICOLAS faxed HH referral and d/c ppwk to [facility] . SW notified HH liaison of new referral. HH to follow up with pt to discuss start of HH if pt is agreeable. SW is available to assist should needs arise.
== END 2021-02-02 13:15 | disposition home health service (06) | DRG 177 ==
LOC: ER 19:35 → 3W 21:18 → EROBS 21:18 → 3W 01-30 00:12
PROVIDERS: Emergency Medicine; Nurse Practitioner Family; Psychiatry & Neurology Neurology; ADMIT Internal Medicine; ATTEND Internal Medicine
DX: U07.1 COVID-19 (principal); J12.82 Pneumonia due to coronavirus disease 2019; G92.8 Other toxic encephalopathy; E87.1 Hypo-osmolality and hyponatremia; N39.0 Urinary tract infection, site not specified; I16.0 Hypertensive urgency; E11.51 Type 2 diabetes mellitus with diabetic peripheral angiopathy without gangrene; E78.5 Hyperlipidemia, unspecified; I10 Essential (primary) hypertension; R26.89 Other abnormalities of gait and mobility; Z87.891 Personal history of nicotine dependence; Z95.820 Peripheral vascular angioplasty status with implants and grafts; Z79.899 Other long term (current) drug therapy
CPT/HCPCS: 10879